=== PATIENT | female | born 1990 | race Caucasian/White ===

== ENCOUNTER 2019-07-24 09:26 | Day surgery (SDC) | payer OTHER ==
[~2019-07-24] VITALS: Ht 160 cm; Wt 82.1 kg
[~2019-07-24 09:26] MED LIST: AMPICILLIN SOD/SULBACTAM SOD 3 GM in D5W MINI-BAG PLUS 100 ML IV ONE; CLOB5CR TOP; DULO1CAP6 PO; FLUTISP; IBUP80TA PO; LIDOCAINE 1% MDV 20ML VIAL SQ PRN; LR 1,000 ML IV ONE; NON-325T5 PO; TYLE325T5 PO; dexameTHASONE 4 MG/ML 1ML VIAL (J1100) IV ONE
[2019-07-24] MEDS ORDERED: PROPOFOL 200 MG/20 ML VIAL As Ordered ONE ×2 (10:36→12:05)
[2019-07-24] MEDS ORDERED: LIDOCAINE 2% INJ 100 MG/5 ML SDV (FOR ANES.) As Ordered ONE (10:36)
[2019-07-24] MEDS ORDERED: MIDAZOLAM INJ 2 MG/2 ML VIAL (J2250) As Ordered ONE (10:36)
[2019-07-24] MEDS ORDERED: LIDOCAINE 2% JELLY 6 ML SYRINGE As Ordered ONE (10:36)
[2019-07-24] MEDS ORDERED: ONDANSETRON 4MG/2ML VIAL (J2405) As Ordered ONE (10:36)
[2019-07-24] MEDS ORDERED: fentaNYL 250 MCG/5 ML INJECTION (J3010) As Ordered ONE (10:36)
[2019-07-24] MEDS ORDERED: ROCURONIUM BROMIDE 50 MG/5 ML VIAL As Ordered ONE (10:36)
[2019-07-24] MEDS ORDERED: SCOPOLAMINE 1MG TRANSDERMAL PATCH As Ordered ONE (11:30)
[2019-07-24] MEDS ORDERED: dexameTHASONE 4 MG/ML 1ML VIAL (J1100) As Ordered ONE (11:40)
[2019-07-24] MEDS ORDERED: SCOPOLAMINE 1MG TRANSDERMAL PATCH TOP ONE (12:00)
[2019-07-24] MEDS ORDERED: GLYCOPYRROLATE INJ 0.2 MG/ML 2 ML VIAL As Ordered ONE (12:03)
[2019-07-24] MEDS ORDERED: NEOSTIGMINE 10 MG/10 ML VIAL (J2710) As Ordered ONE (12:03)
[2019-07-24] MEDS ORDERED: LIDOCAINE 2% W/ EPINEPHRINE 1.7 ML DENTAL INJ As Ordered ONE (12:05)
[2019-07-24] MEDS ORDERED: NORCO, ANEXSIA 5/325MG TABLET (HYDROcodone/ACETAMINOPHEN) As Ordered ONE (13:00)
[2019-07-24] MEDS ORDERED: IBUPROFEN 800 MG TAB As Ordered ONE (13:01)
[2019-07-24] MEDS ORDERED: IBUPROFEN 800 MG TAB PO ONE (13:30)
[2019-07-24] MEDS ORDERED: NORCO, ANEXSIA 5/325MG TABLET (HYDROcodone/ACETAMINOPHEN) PO ONE (13:30)
[2019-07-24] MEDS ORDERED: ONDANSETRON 4MG/2ML VIAL (J2405) IV PRN (13:45)
[2019-07-24] MEDS ORDERED: LR 1,000 ML IV SCH (13:45)
[2019-07-24] MEDS ORDERED: PERCOCET 5MG/325MG TAB PO PRN (13:45)
[2019-07-24] MEDS ORDERED: fentaNYL 100 MCG/2 ML INJECTION (J3010) IV PRN (13:45)
[2019-07-24 13:50] VITALS: BP 121/73
--- NOTE | 2019-07-25 13:27 | RO ---
DATE OF PROCEDURE: 07/24/2019 SURGEON: Mino Betts DMD, MD STAFF PSYCHOLOGIST: PREOPERATIVE DIAGNOSIS: Grossly decayed and symptomatic teeth number 2, 4, 5, and 17. POSTOPERATIVE DIAGNOSIS: Status post grossly decayed and symptomatic teeth number 2, 4, 5, and 17. PROCEDURE PERFORMED: Surgical extraction teeth number 2, 4, 5, and 17. ANESTHESIA USED: General endotracheal anesthesia via nasal ray. SPECIMEN: Teeth for gross only. INDICATIONS FOR SURGERY: Stephanie is a pleasant 29-year-old female referred to my office for extraction of teeth number 2, 4, 5, and 17. She complains of daily pain stemming from these teeth areas. Clinical and radiographic examination confirms gross caries of the aforementioned teeth. We went over anesthesia in the office versus operating room (OR) setting. She has a severe dental anxiety plus a difficult airway. We elected to perform the procedure in OR setting under general anesthesia. History and physical was performed, and informed consent was obtained and signed by the patient and are in the patient's chart. DESCRIPTION OF PROCEDURE: She was taken back to the operating room. She was laid supine on the operating room table. Ulnar nerve protectors were placed. Noninvasive cardiac monitors were applied. At that point, the patient underwent general anesthesia and was intubated with a nasal ray. She was prepped and draped in the usual sterile fashion. A time-out procedure was performed to identify the patient, the procedure, and any other precautions. Preoperative antibiotics and steroids were administered in the IV. At this point, a moist throat pack was inserted in the patient's oropharynx, followed by the administration of 2% lidocaine with 1:100,000 epinephrine as local infiltrations and blocks. A full-thickness flap was released in sites number 2, 4, 5, and 17. A small amount of buccal bone was removed from sites number 2, 4, 5, and 17. The teeth were then luxated with ease and delivered. All sockets were curetted and irrigated. No sinus exposure was noted, and the inferior alveolar nerve was not noted. All sockets were curetted and irrigated. Flaps were closed primarily with 3-0 chromic sutures. Gauze hemostasis was easily achieved. The throat pack was removed. The patient was awakened from general anesthesia and was extubated and taken back to the postanesthesia care unit (PACU). COMPLICATIONS: None. ESTIMATED BLOOD LOSS: 10 mL. DRAINS: There were no drains placed.
== END 2019-07-24 14:27 | disposition home or self-care (01) ==
LOC: M SDC 09:26
PROVIDERS: ATTEND Dentist
DX: K02.9 Dental caries, unspecified (principal); M79.7 Fibromyalgia; M32.10 Systemic lupus erythematosus, organ or system involvement unspecified; F41.9 Anxiety disorder, unspecified; Z88.2 Allergy status to sulfonamides; Z91.040 Latex allergy status; Z88.8 Allergy status to other drugs, medicaments and biological substances; Z87.891 Personal history of nicotine dependence; F12.10 Cannabis abuse, uncomplicated
CPT/HCPCS: 81025; 88300; D7210; D9223; J1100; J2250; J2405; J2710; J3010